=== PATIENT | male | born 2000 ===

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

== ENCOUNTER 2022-04-14 22:58 | Emergency (ER) | payer OTHER ==
[~2022-04-14] VITALS: Ht 188 cm; Wt 86.2 kg
== END 2022-04-15 01:44 | disposition home or self-care (01) ==
LOC: ER 22:58
DX: M24.411 Recurrent dislocation, right shoulder (principal)
CPT/HCPCS: 23650; 73020; 73030; 96374-59; 99283-25; J2704; J3010; J7030

== ENCOUNTER 2023-11-17 07:26 | Day surgery (SDC) | payer OTHER ==
[~2023-11-17] VITALS: Ht 188 cm; Wt 101.4 kg
[2023-11-17] MEDS ORDERED: Methylene Blue 1% 100 MG/10 ML VIAL ONE (08:22)
[2023-11-17] MEDS ORDERED: Lactated Ringer's 1,000 ML IV ONE ×2 (08:23→08:51)
[2023-11-17] MEDS ORDERED: Lidocaine HCl/Pf 1% 5 ML VIAL ONE (08:23)
[2023-11-17] MEDS ORDERED: Lidocaine 2% 5 ML SDV ONE (08:23)
[2023-11-17] MEDS ORDERED: Glycopyrrolate 0.2 MG/ML 1MLVIAL ONE (08:23)
[2023-11-17] MEDS ORDERED: Ondansetron HCl 2 MG / ML 2ML Vial ONE (08:23)
[2023-11-17] MEDS ORDERED: propofoL 50 ML IV ONE (08:24)
[2023-11-17] MEDS ORDERED: Atropine Sulfate 0.1 MG/ML 10ML SYR ONE (08:25)
[2023-11-17] MEDS ORDERED: ePHEDrine Sulfate 50 MG/ML 1ML Injection ONE (08:25)
[2023-11-17 09:34] VITALS: BP 120/81
== END 2023-11-17 09:36 | disposition home or self-care (01) ==
LOC: ORSCSDS 07:26
PROVIDERS: Internal Medicine Gastroenterology
PROC: 0DBA8ZX Excision of Jejunum, Via Natural or Artificial Opening Endoscopic, Diagnostic (ICD-10-PCS; principal; 2023-11-17 08:45)
PROC: 0DB68ZX Excision of Stomach, Via Natural or Artificial Opening Endoscopic, Diagnostic (ICD-10-PCS; principal; 2023-11-17 08:45)
PROC: 0DB98ZX Excision of Duodenum, Via Natural or Artificial Opening Endoscopic, Diagnostic (ICD-10-PCS; principal; 2023-11-17 08:45)
DX: R14.0 Abdominal distension (gaseous) (principal); K59.04 Chronic idiopathic constipation; K29.70 Gastritis, unspecified, without bleeding
CPT/HCPCS: 88305; 88342; J0461; J2001; J2405; J2704; J7120; Q9968